=== PATIENT | female | born 1985 | race African-American/Black ===

== ENCOUNTER 2021-02-02 00:36 | Emergency (ER) | payer MEDICAID ==
[~2021-02-02] VITALS: Ht 167.6 cm; Wt 81.6 kg
--- NOTE | 2021-02-02 00:45 | NUR ---
Patient arrived to ER via ambulatory c/o chest discomfort for a few days after her mother . New orders received from EDP and carried out. All procedures were explain to the patient . Patient verbalized understanding. Safety and comfort measures taken: bed set in low position, frequent rounds, call light within reach. Will continue monitoring the patient during the sift.
[2021-02-02 00:50] VITALS: BP 110/63
[2021-02-02] MEDS ORDERED: ATIVAN1 MG ORAL (00:53)
--- NOTE | 2021-02-02 00:54 | Emergency Room Report ---
History of Present Illness General Chief Complaint: Headache Source: Patient Present Illness HPI This is a 35-year-old female with no past medical history. She presents with multiple complaints. She has a headache, chest tightness, back pain, unable to sleep. She said that her mom just and the was few days ago. Patient states she has not been able to sleep. She has been crying. Also with stiffness in her body. Has headache. No nausea no vomiting. No fever chills. Has chest tightness and said that her chest is locking up. Denies any exertional component. He denies any diaphoresis. Nothing made it better. Nothing made it worse. Allergies: Coded Allergies: No Known Allergies (Unverified , 02/02/21) COVID-19 Screening Contact w/high risk pt: No Experienced COVID-19 symptoms?: No COVID-19 Testing performed PRESSURE TESTER: No Patient History Past Medical History: see triage record, old chart reviewed Past Surgical History: none Pertinent Family History: none Social History: Denies: smoking Now: No Immunizations: other Reviewed Nursing Documentation: PMH: Agreed; PSxH: Agreed Nursing Documentation-PMH Past Medical History: No Stated History Review of Systems Eye: Denies: eye pain, blurred vision ENT: Denies: ear pain, nose congestion, throat swelling Respiratory: Denies: cough, shortness of breath Cardiovascular: Reports: chest pain; Denies: palpitations Gastrointestinal: Denies: abdominal pain, diarrhea, nausea, vomiting Musculoskeletal: Reports: back pain; Denies: joint pain Skin: Denies: rash Neurological: Reports: headache; Denies: numbness Endocrine: Denies: increased thirst, increased urine Hematologic/Lymphatic: Denies: easy bruising All Other Systems: negative except mentioned in HPI Physical Exam Vital Signs Date Time Temp Pulse Resp B/P (MAP) Pulse Ox O2 Delivery O2 Flow Rate FiO2 02/02/21 00:39 98.1 70 18 108/63 (78) 98 Vitals normal Sp02 EP Interpretation: reviewed, normal General Appearance: well appearing, no apparent distress, alert Head: normocephalic, atraumatic Eyes: bilateral eye PERRL, bilateral eye EOMI ENT: hearing grossly normal, normal pharynx Neck: full range of motion, supple, no meningismus Respiratory: chest non-tender, lungs clear, normal breath sounds Cardiovascular #1: regular rate, rhythm, no murmur Gastrointestinal: normal bowel sounds, non tender, no mass, no organomegaly, no bruit, non-distended Musculoskeletal: back normal, normal range of motion, gait/station normal Psychiatric: mood/affect normal Medical Decision Making Diagnostic Impression: Primary Impression: Stress reaction Additional Impression: Grieving ER Course Patient presents with anxiety/stress response. No evidence of suicidal thoughts homicidal thought. No evidence of ACS, PE, dissection. Her chest pain is more stress related rather than cardiac in nature. EKG Diagnostic Results Troponin ordered: No Rate: normal Rhythm: NSR ST Segments: no acute changes Last Vital Signs Date Time Temp Pulse Resp B/P (MAP) Pulse Ox O2 Delivery O2 Flow Rate FiO2 02/02/21 00:50 97.3 88 17 110/63 98 Status: improved Disposition: HOME, SELF-CARE Condition: Stable Scripts Lorazepam* (ATIVAN*) 1 Mg Tablet 1 MG ORAL THREE TIMES A DAY, #20 TAB Prov: Karthik Calzada MD 02/02/21 Additional Instructions: Follow-up with your doctor in 7 days as needed. Return if symptoms worsen. Karthik Calzada MD Feb 02, 2021 00:54
[2021-02-02] MEDS ORDERED: LORazepam 1mg tab ORAL ONE (01:00)
--- NOTE | 2021-02-02 01:02 | NUR ---
Patient was discharge home as EDP ordered. All vital signs were taken within normal range. Patient . All prescriptions and instructions were given to the patient . Patient verbalized understanding. patient left the hospital in stable condition
[2021-02-02 01:03] VITALS: BP 112/78
== END 2021-02-02 01:04 | disposition home or self-care (01) ==
LOC: EMR 00:53
DX: F43.9 Reaction to severe stress, unspecified (principal); F43.21 Adjustment disorder with depressed mood; M54.9 Dorsalgia, unspecified
CPT/HCPCS: 93005; Z7502; 99282